=== PATIENT | female | born 1995 ===

== ENCOUNTER 2018-08-17 17:58 | Inpatient (IN) ==
[2018-08-17] MEDS ORDERED: LABETALOL 100 MG TABLET ONE (20:00)
[2018-08-17 20:04] LABS: Basophils % 0.3 % (0.0-0.8); Eosinophils % 0.4 % (0.00-10.9); Hematocrit 32.6 VOL% (35.7-47.0); Immature Granulocytes % 0.8 %; Immature Granulocytes Absolute 0.08 #; Lymphocytes # 1.1 10*3/uL (1.4-4.0); Lymphocytes % 10.6 % (21.3-54.2); Mean Corpuscular HGB Conc 33.7 GM/DL (32-36); Mean Corpuscular Hemoglobin 28 PG (27-34); Mean Corpuscular Volume 83.4 FL (87-102); Mean Platelet Volume 10.6 FL (9.6-12.0); Monocytes # 0.6 10*3/uL (0.11-0.8); Monocytes % 5.4 % (1.7-12.7); Neutrophils # 8.4 10*3/uL (1.4-7.4); Neutrophils % 82.5 % (38.7-73.9); Platelet Count 323 T/CUMM (130-400); Red Blood Count 3.91 MC/CUMM (3.8-5.5); Red Cell Distribution Width 13.9 % (9.3-17.3); White Blood Count 10.2 T/CUMM (4-12)
[2018-08-17] MEDS: LABETALOL 100 MG TABLET PO SCH (20:04)
[2018-08-17 20:20] LABS: INR 0.9; PT Patient Result 9.4 SECS; Partial Thromboplastin Time 27.9 SECS (0-40)
[2018-08-17 20:23] LABS: Alanine Aminotransferase 13 U/L (13-56); Alkaline Phosphatase 184 U/L (45-117); Aspartate Amino Transferase 12 U/L (0-37); Bilirubin,Direct < 0.100 MG/DL (0.0-0.20); Bilirubin,Total < 0.39 MG/DL (0.2-1.0); Calcium 8.9 MG/DL (8.5-10.1); Total Protein 7.1 G/DL (6.4-8.3)
[2018-08-17 20:24] LABS: Albumin 2.5 G/DL (3.4-5.0); Blood Urea Nitrogen 16 MG/DL (7-18); Glucose 69 MG/DL (74-106); Osmolality,Calculated 281.1 MOS/KG (273-304); Potassium 3.9 MMOL/L (3.5-5.1); Sodium 142 MMOL/L (136-145); Uric Acid 4.5 MG/DL (2.6-6.0)
[2018-08-18] MEDS: LABETALOL 100 MG TABLET PO SCH ×2 (08:34→21:52)
[2018-08-18 20:22] LABS: Collection Time,Urine 24 HOURS; Creatinine 24 Hr Urine Result 1.92 G/24HR (0.60-1.80); Total Protein 24 Hr Ur Result 999 MG/24HR (0-149.1); Total Volume,Urine 775 ML (400-2000)
[2018-08-18 20:25] LABS: Creatinine Clearance Urine 216.19 ML/MIN (70-115)
[2018-08-18] MEDS ORDERED: ONDANSETRON 4 MG/2 ML VIAL IV PRN (21:15)
[2018-08-18] MEDS ORDERED: LACTATED RINGERS 1,000 ML IV PRN (21:15)
[2018-08-18] MEDS ORDERED: OXYTOCIN/LR 20 UNIT/1,000 ML BAG IV PRN (21:20)
[2018-08-18] MEDS ORDERED: LABETALOL 100 MG/20 ML VIAL IV PRN ×2 (21:25)
[2018-08-18] MEDS ORDERED: LABETALOL 20 MG/4 ML SYRINGE IV PRN (21:25)
[2018-08-19] MEDS ORDERED: BUTORPHANOL 2 MG/ML VIAL IV PRN (00:40)
[2018-08-19] MEDS ORDERED: CLINDAMYCIN INJ 900 MG in PREMIX 1 EACH IV SCH (07:30)
[2018-08-19] MEDS: LABETALOL 100 MG TABLET PO SCH ×2 (08:43→20:52)
[2018-08-19] MEDS ORDERED: MAGNESIUM SULF RIDER 100 ML IV ONE (09:19)
[2018-08-19] MEDS: MAGNESIUM SULF DRIP 40 GM/1,000 ML ML IV SCH (10:13)
[2018-08-19] MEDS ORDERED: FAMOTIDINE 20 MG/2 ML VIAL IV ONE (17:51)
[2018-08-19] MEDS ORDERED: CITRIC ACID/SODIUM CITRATE 30 ML UDCUP PO ONE (17:51)
[2018-08-19] MEDS ORDERED: CLINDAMYCIN INJ 900 MG in PREMIX 1 EACH IV ONE (17:55)
[2018-08-19] MEDS ORDERED: OXYTOCIN/LR 20 UNIT/1,000 ML BAG IV ONE ×2 (18:03→19:29)
[2018-08-19] MEDS ORDERED: ONDANSETRON 4 MG/2 ML VIAL IV PRN (19:29)
[2018-08-19] MEDS ORDERED: ACETAMINOPHEN 325 MG TABLET PO PRN (19:29)
[2018-08-19] MEDS ORDERED: RHO(D) IMMUNE GLOBULIN 300 MCG SYRINGE IM ONE (19:29)
[2018-08-19] MEDS ORDERED: IBUPROFEN 800 MG TABLET PO PRN (19:29)
[2018-08-19] MEDS ORDERED: LACTATED RINGERS 1,000 ML IV SCH (19:30)
[2018-08-19] MEDS ORDERED: fentaNYL 100 MCG/2 ML VIAL ONE (19:41)
[2018-08-19] MEDS ORDERED: MORPHINE 10 MG/10 ML VIAL ONE (19:43)
[2018-08-19] MEDS ORDERED: BUPIVACAINE SPINAL 0.75% 2 ML AMP SPINAL ONE (19:44)
[2018-08-19] MEDS ORDERED: LACTATED RINGERS 1,000 ML IV ONE (19:54)
[2018-08-19] MEDS: DOCUSATE SODIUM 100 MG CAPSULE PO SCH (20:52)
[2018-08-20] MEDS: CLINDAMYCIN INJ 900 MG in PREMIX 1 EACH IV SCH ×2 (01:48→09:46)
[2018-08-20 04:57] LABS: Basophils % 0.2 % (0.0-0.8); Hematocrit 30.4 VOL% (35.7-47.0); Hemoglobin 9.6 GM/DL (12.0-16.0); Immature Granulocytes % 0.4 %; Immature Granulocytes Absolute 0.05 #; Lymphocytes # 0.5 10*3/uL (1.4-4.0); Lymphocytes % 3.6 % (21.3-54.2); Mean Corpuscular HGB Conc 31.6 GM/DL (32-36); Mean Corpuscular Hemoglobin 27 PG (27-34); Mean Corpuscular Volume 85.4 FL (87-102); Mean Platelet Volume 10.5 FL (9.6-12.0); Monocytes # 0.6 10*3/uL (0.11-0.8); Monocytes % 4.8 % (1.7-12.7); Neutrophils # 11.4 10*3/uL (1.4-7.4); Platelet Count 272 T/CUMM (130-400); Red Blood Count 3.56 MC/CUMM (3.8-5.5); Red Cell Distribution Width 13.9 % (9.3-17.3); White Blood Count 12.5 T/CUMM (4-12)
[2018-08-20 06:17] LABS: Anisocytosis Slight; Lymphocytes 7 % (20-55); Macrocytosis Slight; Platelet Estimate Normal; Segmented Neutrophils 86 % (50-85); Total Cells Counted 100
[2018-08-20] MEDS: MAGNESIUM SULF DRIP 40 GM/1,000 ML ML IV SCH (07:41)
[2018-08-20] MEDS: MULTIVITAMIN (PRENATAL) TABLET PO SCH (09:44)
[2018-08-20] MEDS: LABETALOL 100 MG TABLET PO SCH ×2 (09:44→20:43)
[2018-08-20] MEDS: DOCUSATE SODIUM 100 MG CAPSULE PO SCH ×2 (09:44→21:21)
[2018-08-20] MEDS: MAGNESIUM HYDROXIDE SUSP 30 ML UDCUP PO PRN (21:23)
[2018-08-20] MEDS: SIMETHICONE CHEW 80 MG TABLET PO PRN (21:23)
[2018-08-21] MEDS: LABETALOL 100 MG TABLET PO SCH ×3 (09:15→22:55)
[2018-08-21] MEDS: DOCUSATE SODIUM 100 MG CAPSULE PO SCH ×3 (09:16→22:55)
[2018-08-21] MEDS: MULTIVITAMIN (PRENATAL) TABLET PO SCH (09:16)
[2018-08-21] MEDS: MAGNESIUM HYDROXIDE SUSP 30 ML UDCUP PO PRN (19:47)
[2018-08-21] MEDS: SIMETHICONE CHEW 80 MG TABLET PO PRN (19:48)
[2018-08-22] MEDS ORDERED: BISACODYL 10 MG SUPP RECTAL PRN (05:40)
[2018-08-22] MEDS: MULTIVITAMIN (PRENATAL) TABLET PO SCH (08:31)
[2018-08-22] MEDS: DOCUSATE SODIUM 100 MG CAPSULE PO SCH (08:31)
[2018-08-22] MEDS: LABETALOL 100 MG TABLET PO SCH (08:32)
[2018-08-22] MEDS ORDERED: LABETALOL 100 MG TABLET PO SCH (13:00)
[2018-08-22 13:42] VITALS: BP 146/85
== END 2018-08-22 14:15 | disposition home or self-care (01) | DRG 540 ==
LOC: N.LDOUT 17:58 → N.LD 18:01 → EDSTATUS 08-19 08:34 → N.OB 08-20 20:45
PROVIDERS: ADMIT Obstetrics & Gynecology; ATTEND Obstetrics & Gynecology
PROC: LDCSECT (ICD-10-PCS; 2018-08-19 19:00)